=== PATIENT | male | born 1960 | race Two or more races ===

== ENCOUNTER 2024-01-26 21:12 | Emergency (ER) | payer OTHER ==
[~2024-01-26] VITALS: Ht 157.5 cm; Wt 62.7 kg
[2024-01-26 21:55] LABS: Basophils # (auto) 0.1 10 ^3/uL (0-0.2); Basophils % (auto) 0.8 % (0.0-2.0); Eosinophils # (auto) 0.1 10 ^3/uL (0-0.8); Eosinophils % (auto) 2.2 % (0.0-7.0); Hematocrit 36.4 % (41.0-53.0); Hemoglobin 12.1 g/dL (13.5-17.5); Mean Corpuscular Hemoglobin 28.8 pg (28.0-32.0); Mean Corpuscular Hgb Conc. 33.1 g/dL (32.0-36.0); Mean Corpuscular Volume 86.8 fL (80.0-100.0); Monocytes # (auto) 0.6 10 ^3/uL (0-1.3); Monocytes % (auto) 9.4 % (0.0-12.0); Neutrophils # (auto) 3.8 10 ^3/uL (1.6-8.6); Neutrophils % (auto) 57.6 % (37.0-80.0); Platelet Count (auto) 319 10^3/uL (140-450); Red Cell Distribution Width 15.4 % (11.8-14.3); White Blood Cell 6.7 10^3/uL (4.4-10.8)
[2024-01-26 22:03] LABS: Chloride 107 mmol/L (98-107); Potassium 4.3 mmol/L (3.5-5.1); Sodium 140 mmol/L (136-145)
[2024-01-26 22:04] LABS: Anion Gap 7 (5-15); Calcium 9.7 mg/dL (8.7-10.4); Carbon Dioxide 26 mmol/L (20-31)
--- NOTE | 2024-01-26 22:06 | ED.PDOC ---
History of Present Illness HPI Comments 64 y/o M, with a Hx of CAD, DM, HLD, HTN, [place], PTCA, 2xCABG, and leaky heart- valve, presents with c/o non-radiating, left-sided chest pain and diaphoresis for the past 3 days. Patient endorses unprovoked onset of symptoms, with associated bilateral leg "cold" sensation, that has been constant since for aforementioned duration. Patient comments on having 2xCABG performed at [facility] a year ago, with second surgical procedure following an "sternal infection" he contracted s/p initial surgical procedure. Patient also states on "leaky heart-valve" Dx 3 months ago. Patient denies having any shortness of breath, palpitations, nausea, vomiting, fever, chills, or other symptoms at this time. Chief Complaint: Chest Pain Time Seen by MD: 21:30 Reviewed Notes: Nurses Notes, Medications, Allergies Allergies: Coded Allergies: NO KNOWN ALLERGIES (Unverified , 06/16/23) Information Source: Patient Mode of Arrival: Ambulatory Severity: Moderate Timing: Days Duration: Since onset Prehospital treatment: None Past Medical History PAST MEDICAL HISTORY: CAD, DM, High Lipids, HTN, [place] Past Medical History (Other): leaky heart-valve Surgical History: CABG (2x), PTCA Family History Family History: Reviewed,noncontributory to illness, Unknown Social History Smoker: Non-Smoker Alcohol: Denies ETOH Use Drugs: Denies Drug Use Lives In: Home Constitutional: reports: diaphoresis; denies: chills, fatigue, fever, malaise, sweats, weakness, others EENTM: denies: blurred vision, double vision, ear bleeding, ear discharge, ear drainage, ear pain, ear ringing, eye pain, eye redness, hearing loss, mouth pain, mouth swelling, nasal discharge, nose bleeding, nose congestion, nose pain, photophobia, tearing, throat pain, throat swelling, voice changes, others Respiratory: denies: cough, hemoptysis, orthopnea, SOB at rest, shortness of breath, SOB with excertion, stridor, wheezing, others Cardiovascular: reports: chest pain; denies: dizzy spells, diaphoresis, Dyspnea on exertion, edema, irregular heart beat, left arm pain, lightheadedness, palpitations, PND, syncope, others Gastrointestinal: denies: abdomen distended, abdominal pain, blood streaked bowels, constipated, diarrhea, dysphagia, difficulty swallowing, hematemesis, melena, nausea, poor appetite, poor fluid intake, rectal bleeding, rectal pain, vomiting, others Genitourinary: denies: burning, dysuria, flank pain, frequency, hematuria, incontinence, penile discharge, penile sore, pain, testicle pain, testicle swell ing, urgency, others Neurological: denies: dizziness, fainting, headache, left sided numbness, left sided weakness, numbness, paresthesia, pre-existing deficit, right sided numbness, right sided weakness, seizure, speech problems, tingling, tremors, weakness, others Musculoskeletal: reports: others (bilateral leg "coldness"); denies: back pain, gout, joint pain, joint swelling, muscle pain, muscle stiffness, neck pain Integumetry: denies: bruises, change in color, change in hair/nails, dryness, laceration, lesions, lumps, rash, wounds, others Allergic/Immunocompromised: denies: Difficulty Healing, Frequent Infections, Hives, Itching, others Hematologic/Lymphatic: denies: anemia, blood clots, easy bleeding, easy bruising, swollen glands, others Endocrine: denies: excessive hunger, excessive sweating, excessive thirst, excessive urination, flushing, intolerance to cold, intolerance to heat, unexplained weight gain, unexplained weight loss, others Psychiatric: denies: anxiety, bipolar disorder, depression, hopeless, panic disorder, schizophrenia, sleepless, suicidal, others All Other Systems: Reviewed and Negative Physical Exam General Appearance: Moderate Distress HEENT: Normal ENT Inspection, Pharynx Normal, TMs Normal Neck: Full Range of Motion, Non-Tender, Normal, Normal Inspection Respiratory: Chest Non-Tender, Lungs Clear, No Accessory Muscle Use, No Respiratory Distress, Normal Breath Sounds Cardiovascular: No Edema, No JVD, No Murmur, No Gallop, Normal Peripheral Pulses, Regular Rate/Rhythm Breast Exam: Deferred Gastrointestinal: No Organomegaly, Non Tender, No Pulsatile Mass, Normal Bowel Sounds, Soft Genitalia: Deferred Pelvic: Deferred Rectal: Deferred Extremities: No calf tenderness, Normal capillary refill, Normal inspection, Normal range of motion, Non-tender, No pedal edema Musculoskeletal : Apperance: Normal 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 Was a procedure done?: No EKG EKG : Pulse Rate (adult): 109 [place]: Normal Cardiac Rhythm: ST Block: None Hypertrophy: None ST: Normal Differential Dx Considerations may include: [place], ACS, angina, costochondritis, pericarditis, gastritis, gastroenteritis, viral syndrome, anxiety, musculoskeletal pain X-Ray, Labs, Meds, VS Vital Signs Date Time Temp Pulse Resp B/P (MAP) Pulse Ox O2 Delivery O2 Flow Rate FiO2 01/26/24 22:32 85 01/26/24 22:16 90 01/26/24 22:16 82 12 95 Room Air* 0 21 01/26/24 22:16 98.4 82 12 158/82 (107) 95 98.4 01/26/24 22:06 109 01/26/24 21:39 97.7 90 16 158/87 (110) 99 01/26/24 21:34 97 Lab Test 01/26/24 23:07 01/26/24 21:44 Range/Units Troponin I High Sensitivity 7 7 </=54 ng/L White Blood Count 6.7 4.4-10.8 10^3/uL Red Blood Count 4.20 L 4.5-5.90 10^6/uL Hemoglobin 12.1 L 13.5-17.5 g/dL Hematocrit 36.4 L 41.0-53.0 % Mean Corpuscular Volume 86.8 80.0-100.0 fL Mean Corpuscular Hemoglobin 28.8 28.0-32.0 pg Mean Corpuscular Hemoglobin Concent 33.1 32.0-36.0 g/dL Red Cell Distribution Width 15.4 H 11.8-14.3 % Platelet Count 319 140-450 10^3/uL Mean Platelet Volume 8.6 6.9-10.8 fL Neutrophils (%) (Auto) 57.6 37.0-80.0 % Lymphocytes (%) (Auto) 30.0 10.0-50.0 % Monocytes (%) (Auto) 9.4 0.0-12.0 % Eosinophils (%) (Auto) 2.2 0.0-7.0 % Basophils (%) (Auto) 0.8 0.0-2.0 % Neutrophils # (Auto) 3.8 1.6-8.6 10 ^3/uL Lymphocytes # (Auto) 2.0 0.4-5.4 10 ^3/uL Monocytes # (Auto) 0.6 0-1.3 10 ^3/uL Eosinophils # (Auto) 0.1 0-0.8 10 ^3/uL Basophils # (Auto) 0.1 0-0.2 10 ^3/uL Nucleated Red Blood Cells 0.0 % Sodium Level 140 136-145 mmol/L Potassium Level 4.3 3.5-5.1 mmol/L Chloride Level 107 98-107 mmol/L Carbon Dioxide Level 26 20-31 mmol/L Anion Gap 7 5-15 Blood Urea Nitrogen 21 9-23 mg/dL Creatinine 1.27 0.700-1.30 mg/dL Glomerular Filtration Rate Calc 63 >90 mL/min BUN/Creatinine Ratio 16.5 10.0-20.0 Serum Glucose 276 H 74-106 mg/dL Calcium Level 9.7 8.7-10.4 mg/dL B-Type Natriuretic Peptide 82.64 0-100 pg/mL [place] [id number] Ph: [phone] DIAGNOSTIC IMAGING Diagnostic Imaging Report : [id number] Signed PATIENT: SYLVIA ROLLE ACCT: [id number] UNIT: [id number] : 1960 LOC: ER ROOM / BED: / AGE / SEX: 64 / M ADM STATUS: REG ER SERVICE 43 ORDERING PHYSICIAN: RAEGAN ROBERT MD PROCEDURE(s): CXRP - CHEST PORTABLE REASON: sob ORDER NUMBER(s): [id number], ACCESSION NUMBER(s): [id number] EXAM: XY CHEST PORTABLE CLINICAL HISTORY: sob TECHNIQUE: Single AP view of the chest WID: COMPARISON: XY CHEST PORTABLE on DOS: 06/16/23 FINDINGS: Lines and tubes: Left Atrial appendage clip. Chest: The heart size and pulmonary vasculature is within normal limits. No pleural effusion, pneumothorax, or consolidation. The osseous structures are grossly intact. IMPRESSION: No acute cardiopulmonary abnormality. ATED BY: NIKOLE JONES MD DICTATED DATE/TIME: 01/26/242230 SIGNED BY: NIKOLE JONES MD SIGNED DATE/TIME: 01/26/242230 CC: Patient alert. Complaining of chest pain pain Had bypass surgery a year ago. Vitals stable. Answering all questions. Possibly mitral valve disease. EKG reviewed does not show any acute process. Reviewed his previous visit. Explained to the patient. Continue cardiac monitoring. Chest x-ray reviewed does not show any acute process. Denies shortness a breath. No leg swelling. Blood sugar elevated pain [facility] Time of 1ST Reevaluation: 22:00 Reevaluation 1ST: Unchanged Patient Education/Counseling: Diagnosis, Treatment Family Education/Counseling: No Family Present Departure 1 Departure Time of Disposition: 22:08 Impression: Primary Impression: Chest pain of unknown etiology Additional Impression: Uncontrolled diabetes mellitus Qualified Codes: E13.65 - Other specified diabetes mellitus with hyperglycemia Disposition: ADMITTED INPATIENT Admit to: Med Surg Condition: Guarded Critical Care Note Critical Care Time?: Yes (90 min-critical care time only) Stability Stability form required: No Heart Score Heart Score: Heart Score Response (Comments) Value History Moderate Suspicious 1 EKG Normal 0 Age >65 2 Risk Factors >3 or Hx ASHD 2 Troponin Normal limit 0 Total 5 I personally scribed for RAEGAN ROBERT MD ([email or web address]) on 01/26/24 at 22:06. Electronically submitted by Johnathan Lewis ([email or web address]). I personally scribed for RAEGAN ROBERT MD ([email or web address]) on 01/27/24 at 00:06. Electronically submitted by Johnathan Lewis ([email or web address]). RAEGAN ROBERT MD Jan 26, 2024 22:06
[2024-01-26 22:09] LABS: BUN/Creatinine Ratio 16.5 (10.0-20.0); Blood Urea Nitrogen 21 mg/dL (9-23); Glucose 276 mg/dL (74-106)
[2024-01-26 22:16] VITALS: PULSE 82; RESP 12; TEMP 98.4; O2SAT 95
--- NOTE | 2024-01-26 22:34 | DVH ---
EXAM: XY CHEST PORTABLE CLINICAL HISTORY: sob TECHNIQUE: Single AP view of the chest WID: COMPARISON: XY CHEST PORTABLE on DOS: 06/16/23 FINDINGS: Lines and tubes: Left Atrial appendage clip. Chest: The heart size and pulmonary vasculature is within normal limits. No pleural effusion, pneumothorax, or consolidation. The osseous structures are grossly intact. IMPRESSION: No acute cardiopulmonary abnormality.
[2024-01-27 00:48] VITALS: BP 141/71; PULSE 85; RESP 14; O2SAT 95
[2024-01-27] MEDS: METOPROLOL TARTRATE 25 MG TAB PO ONE (00:50)
--- NOTE | 2024-01-27 06:34 | ECG ---
[facility] Test Date: 2024-01-26 Test Time: 22:32:55 Pat Name: SYLVIA ROLLE Department: ED Room: Gender: M Rn Tele: RUDY : 1960 Requested By: RAEGAN ROBERT Order Number: [id number] Reading MD: Sravan Louis Measurements Intervals [place] Rate: 85 P: 54 FL: 134 QRS: 19 QRSD: 100 T: -23 QT: 370 QTc: 440 Interpretive Statements Sinus rhythm Inferior infarct, age indeterminate Baseline wander in lead(s) V5 Electronically Signed On 01-31-2024 17:03:27 PST by Sravan Louis Please click the below link to view image of tracing.
--- NOTE | 2024-01-28 12:51 | ECG ---
[facility] Test Date: 2024-01-26 Test Time: 21:34:34 Pat Name: SYLVIA ROLLE Department: ED Room: Gender: M [employer] Engineer: PATRICK : 1960 Requested By: RAEGAN ROBERT Order Number: [id number] Reading MD: Sravan Louis Measurements Intervals [place] Rate: 97 P: 46 AR: 135 QRS: 32 QRSD: 99 T: -29 QT: 307 QTc: 390 Interpretive Statements Sinus tachycardia Multiple ventricular premature complexes Inferior infarct, age indeterminate Baseline wander in lead(s) V2 Electronically Signed On 01-31-2024 17:02:50 PST by Sravan Louis Please click the below link to view image of tracing.
--- NOTE | 2024-02-03 22:30 | DVHDS2 ---
Physician Discharge Progress N Final Diagnosis: HTN, CAD, DM Operations or Procedures: Operations or Procedures none Other Interventions Other Interventions CXR, EKG, Lab results Commentary: Commentary 64 y.o. male with CAD, h/o CABG, HTN, DM, MVP arrived to the ED c/o 3 days of intermittent chest pain, located in the left precordial area, dull and non- radiating. He also has had diaphoresis and cold feet feeling. Patient denied SOB, abdominal pain, nausea, fever and other symptoms. His lab results during the visit were unremarkable. no acute finding on CXR or EKG. VS remained stable. Patient was discharged home to follow up with his horologist apprentice and his CT surgeon. Condition on Discharge: Stable Disposition: Home Discharge Instructions: Diet: Consistent carbohydrate Activity: No Restrictions, As Tolerated Follow Up/Referral: Follow up with horologist apprentice and CT surgeon [facility] will coordinate the dates with the patient Medications: Continue home medications Follow Up Care: Discharge Statement: "Patient was advised to return to the ER or call 911 if any headaches, dizziness, shortness of breath, chest pain, abdominal pain, bleeding, fevers, or worsening of medical condition. Patient was counseled about treatment plan, medications, possible side effects, patientverbalized understanding. All questions were answered to the best of my ability. This discharge took greater then 30 minutes in planning, reviewing documentation, counseling the patient, and discussing with other team members." NAVNEET PICKERING MD Feb 03, 2024 22:30
== END 2024-01-27 01:01 | disposition home or self-care (01) ==
LOC: ER 21:12
DX: R07.89 Other chest pain (principal); E11.65 Type 2 diabetes mellitus with hyperglycemia; E78.5 Hyperlipidemia, unspecified; I10 Essential (primary) hypertension; Z98.890 Other specified postprocedural states
CPT/HCPCS: 36415; 71045; 80048; 83880; 84484; 85025; 93005